=== PATIENT | female | born 2000 | race Two or more races ===

== ENCOUNTER 2025-05-13 22:50 | Emergency (ER) | payer MEDICAID, SELFPAY ==
[2025-05-13 22:52] VITALS: BMI 22.1
[2025-05-13 23:17] VITALS: BP 123/80; PULSE 86; RESP 18; TEMP 37.2; O2SAT 98
[2025-05-14] MEDS: KETOROLAC INJ 60 MG/2 ML VIAL IM (00:02)
[2025-05-14] MEDS: METOCLOPRAMIDE 5 MG TABLET 10 MG PO (00:02)
--- NOTE | 2025-05-14 05:33 | EDNOTE_ITS ---
<Statement entered by Jessica Whitley MD - 05/14/25 05:49> As co-signing physician, I was present and available for consult prn. I concur with the plan and care as documented by the midlevel provider. ED Headache RME/HPI General Chief Complaint: Headache Stated Complaint: HEADACHE Time Seen by Provider: 05/13/25 23:37 Arrival date/time: 05/13/25 22:50 24F with history of migraines presents to ED with several day of LOZA and light sensitivity. Limitations: no limitations Related Data Allergies Allergy/AdvReac Type Severity Reaction Status Date / Time No Known Allergies Allergy Verified 05/13/25 22:54 Review of Systems Review of Systems Systems Reviewed: All systems reviewed, normal except as documented Constitutional Constitutional: Reports system reviewed and no additional complaints, except as documented, Reports as per HPI, Denies fever(s) and Reports headache(s) Eyes Eyes: Reports as per HPI and Reports photophobia ENT Ears, Nose, Mouth, and Throat: Denies disequilibrium and Reports headache(s) Cardiovascular Cardiovascular: Reports system reviewed and no additional complaints, except as documented, Denies chest pain and Denies dyspnea Respiratory Respiratory: Reports system reviewed and no additional complaints, except as documented, Denies cough and Denies dyspnea Gastrointestinal Gastrointestinal: Reports system reviewed and no additional complaints, except as documented, Denies abdominal pain, Denies nausea and Denies vomiting Neurologic Neurologic: Reports system reviewed and no additional complaints, except as documented, Denies confusion, Denies disequilibrium and Reports headache(s) Psychiatric Psychiatric: Denies confusion Past Medical History Social History SMOKING STATUS: Never smoker ED Exam General Limitations: Present no limitations General appearance: Present alert and in no apparent distress Head Head exam: Present atraumatic Eye Eye exam: Present normal appearance, PERRL and EOMI ENT ENT exam: Present normal exam, normal oropharynx and mucous membranes moist Neck Neck exam: Present normal inspection, full ROM and trachea midline Chest Chest inspection: Present normal inspection and symmetric chest wall rise Respiratory Respiratory exam: Present normal lung sounds bilaterally Cardiovascular Cardiovascular exam: Present regular rate, normal rhythm and normal heart sounds Abdominal Exam Abdominal exam: Present soft and normal bowel sounds Extremities Exam Extremities exam: Present normal inspection and full ROM Back Exam Back exam: Present normal inspection and full ROM Neurological Exam Neurological exam: Present alert, oriented X3 and CN II-XII intact Psychiatric Psychiatric exam: Present normal affect and normal mood Skin Skin exam: Present warm, dry, intact and normal color Course Quality Measures none Orders Category Date Time Status Ketorolac Inj [Toradol Inj] Med 05/13/25 23:37 Discontinued 60 mg IM X1 ONE Metoclopramide [Reglan] Med 05/13/25 23:37 Discontinued 10 mg PO X1 ONE Vital Signs Vital signs: Vital Signs Temperature 99 F 05/13/25 23:17 Pulse Rate 86 05/13/25 23:17 Respiratory Rate 18 05/13/25 23:17 Blood Pressure 123/80 05/13/25 23:17 Pulse Oximetry (%) 98 05/13/25 23:17 Oxygen Delivery Method Room Air 05/13/25 23:17 O2 at 98% on RA and WNLs Headache MDM Narrative MDM Narrative:: 24F with history of migraines presents to ED with several day of LOZA and light sensitivity. Physical exam reveals normal pupil response and EOM. Speech normal. Gait normal. Patient is afebrile, calm, and alert. Meds improved symptoms. Patient data External records reviewed:: None Clinical information provided by:: patient Social determinants that could affect healthcare access:: none Patient has the following chronic illnesses:: migraines How is presenting disease/condition affected by chronic disease/condition?: caused by Evaluation data The following diagnostics were reviewed and interpreted by me:: other (specify) (none) Lab and/or radiology exams considered but not ordered:: not ordered Interpretation Summary: n/a Medications / Prescriptions Medications or Prescriptions considered but not ordered:: ordered Medication administrations:: Medication Administration History Discontinued Medications Ketorolac Tromethamine (Ketorolac Inj 60 Mg/2 Ml Vial) 60 mg IM X1 ONE Stop: 05/13/25 23:38 Last Admin: 05/14/25 00:02 Dose: 60 mg Documented By: Metoclopramide HCl (Metoclopramide 5 Mg Tablet) 10 mg PO X1 ONE Stop: 05/13/25 23:38 Last Admin: 05/14/25 00:02 Dose: 10 mg Documented By: above Consultations Consultation(s) initiated? (list below): No Diagnosis Differential diagnosis headache: migraine, tension headache, subarachnoid hemorrhage, headache, meningitis, sinusitis and postconcussion syndrome Most likely diagnosis given after review of the tests above:: migraine Admission Indicated Admission indicated?: not indicated Admission Request Was there a request for admission?: No Disposition Plan Disposition Plan: Discharge Discharge Attestation Discharge Attestation: The patient and all family members were given an opportunity to ask questions and understood the discharge instructions. Discharge instructions specifically effects, indications for sooner follow up or return to the emergency department, and the expected course of current diagnosis. Patient condition: Stable Discharge Plan Plan Patient Disposition: HOME (Self Care) Discharge Disposition comment: Stable Prescriptions/Referrals Referrals: No Primary/Family,Physician [Primary Care Provider] - In 1 week Problem List Clinical Impression: Migraine Patient/Caregiver Discharge Instructions Education Materials: ED Headache, Migraine, Classic Additional Instructions: Please follow-up with PCP within 24-48 hours and return immediately if symptoms worsen. NSAIDs like ibuprofen tend to work better for this type of pain. Print Language: Mexican Stand Alone Forms: Patient Portal Info Letter REZA/MEGAN Supervising Physician REZA/MEGAN Supervising Physician: Dr. Whitley
== END 2025-05-14 00:58 | disposition home or self-care (01) ==
PROVIDERS: Emergency Provider Emergency Medicine
DX: G43.109 Migraine with aura, not intractable, without status migrainosus (principal)
CPT/HCPCS: 96372; 99283; J1885; A9270